=== PATIENT | male | born 1990 | race Two or more races ===

== ENCOUNTER 2020-10-26 08:06 | Outpatient (REF) | payer BC, SELFPAY ==
[2020-10-27 14:37] LABS: H Pylori Breath Test DETECTED (NOT DETECTED)
== END 2020-10-26 08:07 | disposition home or self-care (01) ==
LOC: HO.LNP 08:06
PROVIDERS: Referring Provider Family Medicine; Visit Provider Physician Assistant
DX: Z01.818 Encounter for other preprocedural examination (principal); E66.01 Morbid (severe) obesity due to excess calories; Z68.43 Body mass index [BMI] 50.0-59.9, adult
CPT/HCPCS: 83013

== ENCOUNTER → 2020-11-11 08:08 | Outpatient (BNVA) | payer BC, SELFPAY | PROVIDERS: Visit Provider Dietitian, Registered | DX: E66.01 Morbid (severe) obesity due to excess calories (principal) | CPT/HCPCS: 97802 ==